=== PATIENT | male | born 1960 | race Caucasian/White ===

== ENCOUNTER 2018-01-24 11:41 | Emergency (ER) | payer SELFPAY ==
[2018-01-24] MEDS ORDERED: ALBUTEROL SULFATE 0.083% NEB 2.5 MG/3 ML AMPUL NEB ONE ×3 (11:59→13:49)
[2018-01-24] MEDS ORDERED: METHYLPREDNISOLONE INJ 500 MG VIAL IV ONE (12:00)
[2018-01-24 12:12] LABS: INTERNATIONAL RATION (INR) 1.57; PARTIAL THROMBOPLASTIN TIME 35.5 SEC (23.5-35.8); PROTHROMBIN TIME 19.6 SEC (11.4-15.4)
--- NOTE | 2018-01-24 12:24 | RADIOLOGY REPORT (SQ) ---
EXAM DESCRIPTION: CHEST SINGLE VIEW COMPLETED DATE/TIME: 01/24/2018 12:14 pm REASON FOR STUDY: Intubation COMPARISON: None. EXAM PARAMETERS: NUMBER OF VIEWS: One view. TECHNIQUE: Single frontal radiographic view of the chest acquired. RADIATION DOSE: NA LIMITATIONS: None. FINDINGS: LUNGS AND PLEURA: Marked hyperexpansion of the lungs. No infiltrate or effusion. No pneu mothorax. MEDIASTINUM AND HILAR STRUCTURES: No masses. Contour normal. HEART AND VASCULAR STRUCTURES: Heart normal in size. Normal vasculature. BONES: No acute findings. HARDWARE: The endotracheal to has its tip 6 cm above the [place]. OTHER: No other significant finding. IMPRESSION: Chronic lung changes with no acute cardiopulmonary disease. TECHNICAL DOCUMENTATION: JOB ID: [id number] [employer]- All Rights Reserved Reading location - IP/workstation name: [email or web address]
[2018-01-24 12:25] LABS: HEMATOCRIT 45.5 % (37.9-51.0); HEMOGLOBIN 13.9 g/dL (13.5-17.0); MEAN CORPUSCULAR HEMOGLOBIN 29.5 pg (27.0-33.4); MEAN CORPUSCULAR HGB CONC 30.6 g/dL (32.0-36.0); MEAN CORPUSCULAR VOLUME 96 fl (80-97); PLATELET COUNT 139 10^3/uL (150-450); RED BLOOD COUNT 4.72 10^6/uL (4.35-5.55); RED CELL DISTRIBUTION WIDTH 15.7 % (11.5-14.0); WHITE BLOOD COUNT 7.9 10^3/uL (4.0-10.5)
[2018-01-24 12:30] LABS: ALANINE AMINOTRANSFERASE 256 U/L (21-72); ALBUMIN 3.4 g/dL (3.5-5.0); ALKALINE PHOSPHATASE 45 U/L (38-126); BILIRUBIN,DIRECT 0.7 mg/dL (0.0-0.4); BILIRUBIN,TOTAL 1.2 mg/dL (0.2-1.3); BLOOD UREA NITROGEN 38 mg/dL (7-20); CALCIUM 8.1 mg/dL (8.4-10.2); CREATINE KINASE 106 U/L (55-170); GLUCOSE 74 mg/dL (75-110); POTASSIUM 5.4 mmol/L (3.6-5.0)
[2018-01-24 12:39] LABS: ASPARTATE AMINO TRANSFERASE 298 U/L (17-59); CARBON DIOXIDE 31 mmol/L (22-30); CHLORIDE 95 mmol/L (98-107); SODIUM 146.3 mmol/L (137-145)
[2018-01-24 12:40] LABS: ANION GAP 20 (5-19)
[2018-01-24] MEDS ORDERED: FENTANYL CITRATE INJ/PF 100 MCG/2 ML AMPUL IV ONE (12:41)
[2018-01-24 12:42] LABS: CREATINE KINASE MB 4.57 ng/mL (<4.55)
[2018-01-24] MEDS ORDERED: MIDAZOLAM 2 MG/2 ML INJ IV ONE (12:42)
[2018-01-24] MEDS ORDERED: FENTANYL CITRATE INJ/PF 100 MCG/2 ML AMPUL ONE (12:43)
[2018-01-24] MEDS ORDERED: MIDAZOLAM 2 MG/2 ML INJ ONE (12:43)
[2018-01-24 12:46] LABS: ABSOLUTE LYMPHOCYTES# (MANUAL) 0.8 10^3/uL (0.5-4.7); ABSOLUTE MONOCYTES # (MANUAL) 0.9 10^3/uL (0.1-1.4); ABSOLUTE NEUTROPHILS# (MANUAL) 6.2 10^3/uL (1.7-8.2); BAND NEUTROPHILS % (MANUAL) 2 % (3-5); BASOPHILS % (MANUAL) 0 % (0-2); EOSINOPHILS % (MANUAL) 0 % (0-6); LYMPHOCYTES % (MANUAL) 10 % (13-45); MONOCYTES % (MANUAL) 11 % (3-13); POLYCHROMASIA SLIGHT; SEGMENTED NEUTROPHILS % (MAN) 77 % (42-78); TOTAL CELLS COUNTED 100; TOXIC GRANULATION SLIGHT; TOXIC VACUOLATION PRESENT; TROPONIN I 0.086 ng/mL
[2018-01-24 12:47] LABS: PLATELET COMMENT DECREASED
[2018-01-24] MEDS ORDERED: KETAMINE HCL INJ 500 MG/10 ML VIAL IV ONE (12:55)
--- NOTE | 2018-01-24 12:55 | ER Document Report ---
ED Resuscitation - General Chief Complaint: Cardiac Arrest Stated Complaint: CARDIAC ARREST Time Seen by Provider: 01/24/18 11:57 - HPI Witnessed arrest: No Bystander CPR?: Yes - 15 minutes Onset: This 84-year-old man presented for evaluation of cardiac arrest, he was found in a truck unresponsive by bystanders and had CPR initiated. After 2 rounds of CPR he had a return of spontaneous circulation, there is no other known health problem. Symptoms prior to event: Unknown - Paramedics initial findings Unresponsive: Completely Respirations: Agonal Rhythm: Tachycardia Glucose (Mg/dl): 138 Heart Rate: 120 - Pre-hospital treatment Treatment: Bag-valve mask Epinephrine Dose (mg): 2 Past Medical History - General Cannot obtain history due to: Intubated - Social History Smoking Status: Current Every Day Smoker Family History: None Review of Systems - Review of Systems -: Yes ROS unobtainable due to patient's medical condition Physical Exam - Vital signs Vitals: Pulse Ox 99 01/24/18 11:58 - Notes Notes: Critically ill-appearing frail diminutive man who presents unresponsive - General General appearance: Unresponsive In distress: Severe - HEENT Head: Normocephalic Eyes: Pale conjunctiva, Periorbital edema Conjunctiva: Injected - Respiratory Respiratory status: Respiratory distress Chest status: Prolonged expirations Breath sounds: Decreased air movement Chest palpation: Normal - Cardiovascular Rhythm: Tachycardia Heart sounds: Normal auscultation Murmur: No - Abdominal Inspection: Normal Distension: No distension Tenderness: Nontender - Back Back: Normal - Extremities General upper extremity: Normal inspection General lower extremity: Other - Bilateral edema 2+ - Neurological Neuro grossly intact: No Cognition: Other - Unresponsive Macho Coma Scale Verbal: None Melfa Coma Scale Motor: None Speech: Other - Skin Skin Temperature: Cold - Dirty, covered in debris skin Course - Re-evaluation Re-evalutation: 01/24/18 14:55 This 57-year-old man presented after an unwitnessed cardiac arrest, he was pulled from his truck subsequently had bystander CPR initiated, had a 15 minute downtime with a return of spontaneous circulation after 2 rounds of epinephrine. He was in PEA arrest, did not ever receive shocks. Upon arrival to the emergency department his pulse was in the 120 range, his blood pressure had improved to the 120 systolic range, he remained unresponsive with a GCS of 3. Given the critical status of this man determination was made to proceed with definitive airway, subsequently came was swapped out for ET tube. An ABG was placed, patient was placed on playground monitor emergently, he is noted to be in sinus tachycardia, an EKG was obtained which did not demonstrate any obvious ST segment changes but it did however demonstrate Q waves throughout the chest leads. Chest x-ray was obtained which showed that the tube is in appropriate position, the lungs demonstrate hyperinflation there are decreased breath sounds bilaterally consistent with likely COPD. Administer nebulizations continuously through the ventilator, initiated treatment with magnesium as well as Solu-Medrol. Made a determination to proceed with CT imaging of the head, as well as CTA of the chest to ensure there is no underlying hemorrhage or pulmonary embolism. At this time is very little information related this patient, is uncertain what is the underlying cause of his cardiac arrest though it seems likely to be related to respiratory component given his poor compliance 1 placed on the ventilator. Patient was noted to be generally unresponsive, did not have any improvement in his status after intubation. Utilized as needed fentanyl as well as Versed to keep patient sedated. Interface with the ventilator improved after administration of fentanyl. Down titrated FiO2 to 40%. Increased respiratory rate 16, decrease tidal volume to 380. Patient's blood pressure down trended following intubation, initiated treatment utilizing epinephrine infusion, started epinephrine infusion at 5, subsequently doubled to 10 and 15 to maintain maps in the 60s. [facility], he is in agreement to transfer at this time via critical care transport. We will plan for this patient to undergo transfer to CICU for further stabilization monitoring. 01/24/18 16:05 01/24/18 17:52 Reassessment patient shows decrease his pH, will increase his tidal volume, respiratory rate is currently set at 17 will increase to 18, have kept FiO2 50% as this patient has an appropriate PaO2. [place] ground team arrived, initially flight watch for delayed air transport as this patient had been scheduled for helicopter transport but the weather changed. On arrival ground team evaluated patient whether has again changed, believe that he is available for air transport as such we will attempt to transport via helicopter. Patient remains hemodynamically stable at this time on 10 of epinephrine. Spoke to the patient's son at the bedside, spoke to his brother as well but his prognosis and current course in agreement with transfer to CICU in [facility] for further stabilization and evaluation. - Vital Signs Vital signs: Temp Pulse Resp BP Pulse Ox 96.7 F L 8 L 136/75 H 99 01/24/18 15:20 01/24/18 15:20 01/24/18 15:20 01/24/18 14:19 - Laboratory Result Diagrams: 01/24/18 11:58 01/24/18 11:58 Laboratory results interpreted by me: 01/24/18 01/24/18 01/24/18 11:58 11:58 11:58 MCHC 30.6 L RDW 15.7 H Plt Count 139 L Band Neutrophils % 2 L Lymphocytes % (Manual) 10 L PT 19.6 H Carbonic Acid ABG pH ABG pCO2 ABG pO2 ABG HCO3 ABG Total CO2 ABG O2 Saturation Carboxyhemoglobin 2.3 H Sodium Potassium Chloride Carbon Dioxide Anion Gap BUN Glucose Calcium Direct Bilirubin AST ALT CK-MB (CK-2) Total Protein Albumin 01/24/18 01/24/18 01/24/18 11:58 11:58 12:20 MCHC RDW Plt Count Band Neutrophils % Lymphocytes % (Manual) PT Carbonic Acid 1.99 H ABG pH 7.22 L ABG pCO2 66.1 H ABG pO2 435.3 H ABG HCO3 26.3 H ABG Total CO2 28.4 H ABG O2 Saturation 99.8 H Carboxyhemoglobin Sodium 146.3 H Potassium 5.4 H Chloride 95 L Carbon Dioxide 31 H Anion Gap 20 H BUN 38 H Glucose 74 L Calcium 8.1 L Direct Bilirubin 0.7 H AST 298 H ALT 256 H CK-MB (CK-2) 4.57 H Total Protein 6.0 L Albumin 3.4 L - Diagnostic Test Radiology reviewed: Image reviewed, Reports reviewed Radiology results interpreted by me: 01/24/18 17:06 ET tube 2 inches at least above the level of the [place], hyperinflated lungs, no appreciable pneumothorax - EKG Interpretation by Co EKG shows normal: Sinus rhythm Rate: Tachycardia Procedures - Intubation Orotracheal Airway evaluation: Normal anatomy Mallampati Classification: Class 1 Intubation method: Orotracheal Blade type: Other Blade size: 4 Equipment used: Glidescope ETT size: 7.5 ETT secured at: Teeth ETT secured at (cm): 25 Breath Sounds after Intubation: Equal End tidal CO2 confirmed: Yes Ventilator settings: SIMV Tidal volume: 380 FiO2: 40 Respirations: 17 PEEP: 5 Post Intubation Xray: Yes Intubation Complications: No complications - Ultrasound/Bedside Ultrasound/Bedside Ultrasound: Other - Hyperdynamic heart, no appreciable pericardial effusion, no septal bowing, normal RV Critical Care Note - Critical Care Note Total time excluding time spent on procedures (mins): 80
[2018-01-24] MEDS ORDERED: ROCURONIUM BROMIDE INJ 50 MG/5 ML VIAL IV ONE ×2 (12:56→19:18)
[2018-01-24] MEDS ORDERED: METHYLPREDNISOLONE SOD SUCC 500 MG in DEXTROSE 5%-WATER 50 ML IV ONE (13:00)
[2018-01-24] MEDS ORDERED: EPINEPHRINE INJ/PF 1 MG/1 ML AMPULE ONE ×4 (13:08→17:11)
[2018-01-24 13:37] LABS: ARTERIAL BLOOD BASE EXCESS -2.8 mmol/L; ARTERIAL BLOOD H2CO3 1.99 mmol/L (1.05-1.35); ARTERIAL BLOOD HCO3 26.3 mmol/L (20-26); ARTERIAL BLOOD O2 SATURATION 99.8 % (94-98); ARTERIAL BLOOD PCO2 66.1 mmHg (35-45); ARTERIAL BLOOD PH 7.22 (7.35-7.45); ARTERIAL BLOOD PO2 435.3 mmHg (80-100); ARTERIAL BLOOD TOTAL CO2 28.4 mmol/L (23-27)
[2018-01-24 13:38] LABS: ARTERIAL BLOOD FIO2 100%
[2018-01-24] MEDS: MAGNESIUM SULFATE/D5W 1 GM/100 ML RTUPB IV SCH ×2 (13:56→15:06)
--- NOTE | 2018-01-24 14:08 | RADIOLOGY REPORT (SQ) ---
EXAM DESCRIPTION: CT HEAD WITHOUT COMPLETED DATE/TIME: 01/24/2018 1:47 pm REASON FOR STUDY: AMS prolonged resuscitation in the field COMPARISON: None. TECHNIQUE: Axial images acquired through the brain without intravenous contrast. Images reviewed wi th bone, brain and subdural windows. Additional sagittal and coronal reconstructions were generated. Images stored on PACS. All CT scanners at this facility use dose modulation, iterative reconstruction, and/or weight based d osing when appropriate to reduce radiation dose to as low as reasonably achievable (ALARA). [facility]: Dose Right [facility]: CareDose [facility]: Dose Right [facility]: Teradose 4D [facility]: RNDOMN RADIATION DOSE: CT Rad equipment meets quality standard of care and radiation dose reduction techniq ues were employed. CTDIvol: 53.2 mGy. DLP: 1097 mGy-cm. mGy. LIMITATIONS: None. FINDINGS: VENTRICLES: Normal size and contour. CEREBRUM: There is some blurring of the lam-white junction over the bifrontal regions, worrisome for ischemic encephalopathy. Sulcal effacement is present. Sylvian fissures are effaced right greater than left. Findings discussed with Dr. Rollins in the emergency room, 1340 hours 01/24/2018 CEREBELLUM: No masses. No hemorrhage. No alteration of density. No evidence for acute infarction. EXTRAAXIAL SPACES: No acute hemorrhage. ORBITS AND GLOBE: No intra- or extraconal masses. Normal contour of globe without masses. CALVARIUM: No fracture. PARANASAL SINUSES: No fluid or mucosal thickening. SOFT TISSUES: No mass or hematoma. OTHER: No other significant finding. IMPRESSION: Subtle signs of lam-white loss of differentiation and sulcal effacement/right sylvian f issure effacement. Findings could represent hypoxic injury. Findings discussed with emergency room attending physician as above. EVIDENCE OF ACUTE STROKE: Early change of global ischemic encephalopathy COMMENT: Quality ID # [id number]: Final reports with documentation of one or more dose reduction techniques (e.g., Automated exposure control, adjustment of the mA and/or kV according to patient size, use of iterative reconstruction technique) TECHNICAL DOCUMENTATION: JOB ID: [id number] [employer]- All Rights Reserved Reading location - IP/workstation name: [facility]
--- NOTE | 2018-01-24 14:14 | RADIOLOGY REPORT (SQ) ---
EXAM DESCRIPTION: CTA CHEST COMPLETED DATE/TIME: 01/24/2018 1:47 pm REASON FOR STUDY: query pe,Cardiac arrest COMPARISON: AP chest film 01/24/2018 TECHNIQUE: CT scan of the chest performed using helical scanning technique with dynamic intravenous contrast injection. Images reviewed with lung, soft tissue and bone windows. Reconstructed coronal and sagittal MPR images reviewed. Additional 3 dimensional post-processing performed to develop Maximal Intensity Projection images (VT P). All images stored on PACS. All CT scanners at this facility use dose modulation, iterative reconstruction, and/or weight based d osing when appropriate to reduce radiation dose to as low as reasonably achievable (ALARA). [facility]: Dose Right [facility]: CareDose [facility]: Dose Right [facility]: Teradose 4D [facility]: CaptureProof CONTRAST TYPE AND DOSE: contrast/concentration: Isovue 350.00 mg/ml; Total Contrast Delivered: 67.0 ml; Total Saline Delivered: 92.0 ml Contrast bolus optimized for the pulmonary arteries and aorta. RENAL FUNCTION: Creatinine 1.2 RADIATION DOSE: CT Rad equipment meets quality standard of care and radiation dose reduction techniq ues were employed. CTDIvol: 29.8 - 34.7 mGy. DLP: 1350 mGy-cm. . LIMITATIONS: None. FINDINGS: LUNGS AND PLEURA: Advanced changes of obstructive lung disease with hyperinflation and hyp erlucency. Trace right pleural effusion. Minimal right basilar airspace disease, atypical edema jayashree mecca pneumonia versus atelectasis. No pneumothorax. AORTA AND GREAT VESSELS: No aneurysm. No thoracic aortic dissection. HEART: No pericardial effusion. No significant coronary artery calcifications. PULMONARY ARTERIES: No emboli visualized in the main pulmonary arteries or the segmental branches. HILAR AND MEDIASTINAL STRUCTURES: No identified masses or abnormal nodes. HARDWARE: Endotracheal tube tip midtrachea. Nasogastric tube tip and side port under the hemidiaphra gms. UPPER ABDOMEN: There is a small amount of intermediate density fluid in the right upper quadrant cece g the subphrenic space and hepatopetal fossa. This measures about 40 Hounsfield units. Hemorrhage r elated to small liver laceration from chest compressions may be present. Findings discussed with Dr. Rollins THYROID AND OTHER SOFT TISSUES: No masses. No adenopathy. BONES: Hairline fracture through the midline sternum sagittal image 49. Multiple acute anterior rib fractures are present bilaterally from chest compression. 3D MIPS: Confirm above findings. OTHER: No other significant finding. IMPRESSION: No CT angio evidence of acute pulmonary emboli or thoracic aortic dissection. Trace right pleural effusion with minimal right basilar airspace disease Multiple anterior bilateral rib fractures, hairline fracture through the sternum post chest compressi ons Small amount of right upper quadrant free fluid without gross CT evidence of liver laceration. Quest ion small liver laceration from chest compression Findings discussed with the patient's emergency room attending physician 1345 hours 01/24/2018 COMMENT: Quality ID # [id number]: Final reports with documentation of one or more dose reduction techniques (e.g., Automated exposure control, adjustment of the mA and/or kV according to patient size, use of iterative reconstruction technique) TECHNICAL DOCUMENTATION: JOB ID: [id number] [employer]- All Rights Reserved Reading location - IP/workstation name: [facility]
[2018-01-24 15:21] VITALS: BP 136/75
[2018-01-24 17:12] LABS: ARTERIAL BLOOD BASE EXCESS -7.6 mmol/L; ARTERIAL BLOOD H2CO3 2.24 mmol/L (1.05-1.35); ARTERIAL BLOOD HCO3 23.5 mmol/L (20-26); ARTERIAL BLOOD O2 SATURATION 94.9 % (94-98); ARTERIAL BLOOD PO2 99.2 mmHg (80-100); ARTERIAL BLOOD TOTAL CO2 25.8 mmol/L (23-27)
[2018-01-24 17:16] LABS: ARTERIAL BLOOD PCO2 74.4 mmHg (35-45); ARTERIAL BLOOD PH 7.12 (7.35-7.45)
[2018-01-24 17:20] LABS: ARTERIAL BLOOD FIO2 40%
--- NOTE | 2018-01-25 08:11 | EKG REPORT ---
SEVERITY:- ABNORMAL ECG - SINUS TACHYCARDIA LEFT POSTERIOR FASCICULAR BLOCK ABNRM R PROG, CONSIDER ASMI OR LEAD PLACEMENT BORDERLINE T WAVE ABNORMALITIES : Confirmed on behalf of: Andria Garcia 25-Jan-2018 08:10:14
== END 2018-01-24 17:54 | disposition short-term general hospital (02) ==
LOC: ER 11:41
DX: I46.9 Cardiac arrest, cause unspecified (principal); R09.02 Hypoxemia; F17.200 Nicotine dependence, unspecified, uncomplicated; R60.9 Edema, unspecified
CPT/HCPCS: 93005; 94640 ×2; 99291; 99292; 51702; 96375; 96365; 36415; 82375; 82553; 82803; 82550; 83735; 85025; 85610; 85730; 80053; 84484; 71045; 70450; 71275; 94660; 93010; 31500; J2250; J3490 ×2; J0171; J3010; J2920; J3475